=== PATIENT | male | born 1990 | race Caucasian/White ===

== ENCOUNTER 2017-11-12 08:58 | Day surgery (SDC) | payer BC ==
[~2017-11-12 08:58] MED LIST: LIDOCAINE HCL 1% MPF SOL ONE; PROPOFOL 500 MG/50 ML EMU IV ONE
[2017-11-12 10:08] VITALS: O2SAT 97
[2017-11-12 10:26] VITALS: BP 114/75; PULSE 69; RESP 20; TEMP 97.6
== END 2017-11-12 10:45 | disposition home or self-care (01) ==
LOC: SURG 08:58
PROVIDERS: ATTEND Surgery
DX: K92.1 Melena (principal); Z80.0 Family history of malignant neoplasm of digestive organs; Z83.71 Family history of colonic polyps
CPT/HCPCS: J2001; J2704